=== PATIENT | female | born 1990 | race Caucasian/White ===

== ENCOUNTER 2016-10-07 05:14 | Day surgery (SDC) | payer OTHER ==
[~2016-10-07] VITALS: Ht 154.9 cm; Wt 94.0 kg
[~2016-10-07 05:14] MED LIST: PROBIOTIC1 EAC1 PO; PROTONIX40 MG PO; SPRINTEC1 EACH PO; WOMEN'S DAILY1 EAC4 PO; ZOLOFT25 MG PO; ZYRTEC10 M3 PO
[2016-10-07 06:06] VITALS: BP 128/61
[2016-10-07] MEDS ORDERED: NORCO 5/3251 TABLET PO (08:42)
[2016-10-07 09:20] VITALS: BP 140/81
[2016-10-07 09:55] LABS: INTERNAL CONTROL VALID? YES
[2016-10-07 10:05] VITALS: BP 141/68
== END 2016-10-07 10:11 | disposition home or self-care (01) ==
LOC: SDC 05:14
PROVIDERS: Surgery
PROC: 0FT44ZZ Resection of Gallbladder, Percutaneous Endoscopic Approach (ICD-10-PCS; principal; 2016-10-07)
DX: K80.10 Calculus of gallbladder with chronic cholecystitis without obstruction (principal); K82.1 Hydrops of gallbladder; Z68.38 Body mass index [BMI] 38.0-38.9, adult; Z80.0 Family history of malignant neoplasm of digestive organs; Z82.5 Family history of asthma and other chronic lower respiratory diseases; Z83.3 Family history of diabetes mellitus; Z82.49 Family history of ischemic heart disease and other diseases of the circulatory system; Z84.1 Family history of disorders of kidney and ureter; Z88.8 Allergy status to other drugs, medicaments and biological substances
CPT/HCPCS: 84703; 88304; C1769; J0330; J0690; J1100; J1170; J1885; J2250; J2405; J2710; J2765; J3010; J7120